=== PATIENT | male | born 1995 | race Asian ===

== ENCOUNTER 2023-02-21 12:12 | Emergency (ER) | payer SELFPAY ==
[2023-02-21] MEDS ORDERED: Lidocaine 1% PF 5 ML VIAL ONE (12:58)
== END 2023-02-21 14:20 | disposition home or self-care (01) ==
LOC: ERS 12:12
DX: J93.11 Primary spontaneous pneumothorax (principal)
CPT/HCPCS: 71045; 99284

== ENCOUNTER 2023-02-24 14:19 | Outpatient (CLI) | payer BC | END 2023-02-24 14:20 | disposition home or self-care (01) | LOC: RAD 14:19 | PROVIDERS: ATTEND Thoracic Surgery (Cardiothoracic Vascular Surgery) | DX: J93.9 Pneumothorax, unspecified (principal) | CPT/HCPCS: 71046 ==

== ENCOUNTER 2023-02-25 07:54 | Inpatient (IN) | payer BC, SELFPAY ==
[2023-02-24 15:39] VITALS: BMI 17.9
[2023-02-25] MEDS ORDERED: Dexamethasone 4 mg/ml Vial ONE (08:47)
[2023-02-25] MEDS ORDERED: Bupivacaine HCl 0.5%/Epinephrine 1:200,000/PF 30 ml Vial ONE (08:47)
[2023-02-25] MEDS ORDERED: PHENYLEPHRINE-NS 100 MCG/ML 10 ML SYRINGE ONE (09:00)
[2023-02-25] MEDS ORDERED: Succinylcholine 200 MG/10 ml SYRINGE FS ONE (09:00)
[2023-02-25] MEDS ORDERED: Dexamethasone 20 MG/5 ML VIAL ONE (09:00)
[2023-02-25] MEDS ORDERED: Rocuronium Bromide 10 MG/ML (10ML VIAL) ONE (09:00)
[2023-02-25] MEDS ORDERED: ePHEDrine Sulfate 50 MG/10 ML VIAL ONE (09:00)
[2023-02-25] MEDS ORDERED: Lidocaine 1% PF 5 ML VIAL ONE (09:00)
[2023-02-25] MEDS ORDERED: Ondansetron PF 4 MG/2 ML Vial ONE (09:00)
[2023-02-25] MEDS ORDERED: PROPOFOL 200 MG/20 ML VIAL ONE (09:00)
[2023-02-25] MEDS ORDERED: Sodium Chloride 0.9% 100 ML ONE (09:10)
[2023-02-25] MEDS ORDERED: CEFAZOLIN 2 GM VIAL ONE (09:10)
[2023-02-25] MEDS ORDERED: Fentanyl 250 MCG/5 ML VIAL ONE (09:11)
[2023-02-25] MEDS ORDERED: Midazolam HCl 2 mg/2 ml Vial ONE (09:11)
[2023-02-25] MEDS ORDERED: SUGAMMADEX SODIUM 200 MG/2 ML VIAL ONE (10:00)
[2023-02-25] MEDS ORDERED: Meperidine HCl/PF 25 MG/ML VIAL SLOW IVP PRN ×2 (10:32)
[2023-02-25] MEDS ORDERED: Promethazine HCl 25 MG/ML VIAL IM PRN (10:32)
[2023-02-25] MEDS ORDERED: Ondansetron HCl/PF 4 MG/2 ML Vial IVP PRN (10:32)
[2023-02-25] MEDS ORDERED: HYDROmorphone 2 MG/ML VIAL SLOW IVP PRN (10:32)
[2023-02-25] MEDS ORDERED: Meperidine HCl/PF 25 MG/ML VIAL ONE (10:37)
[2023-02-25] MEDS ORDERED: Fentanyl 100 MCG/2 ML VIAL SLOW IVP PRN ×2 (10:43)
[2023-02-25] MEDS ORDERED: Guaifenesin DM 100-10/5 ML UDCUP PO PRN (10:43)
[2023-02-25] MEDS ORDERED: traMADol HCl 50 MG TAB PO PRN (10:43)
[2023-02-25] MEDS ORDERED: fentaNYL 50 mcg/mL 1 mL Vial SLOW IVP PRN (10:54)
[2023-02-25] MEDS ORDERED: fentaNYL 50 mcg/mL 1 mL Vial ONE (10:55)
[2023-02-25] MEDS: Ketorolac Tromethamine 30 MG/ML VIAL IVP SCH ×2 (12:32→17:12)
[2023-02-25] MEDS ORDERED: Ketorolac Tromethamine 30 MG/ML VIAL ONE (12:32)
[2023-02-25] MEDS: Sodium Chloride 0.9% 1,000 ML IV SCH (15:45)
[2023-02-25] MEDS: CEFAZOLIN 2 GM in Sodium Chloride 0.9% 100 ML IVPB SCH (17:11)
[2023-02-26] MEDS: Ketorolac Tromethamine 30 MG/ML VIAL IVP SCH ×5 (00:25→23:45)
[2023-02-26] MEDS: CEFAZOLIN 2 GM in Sodium Chloride 0.9% 100 ML IVPB SCH ×2 (00:26→08:18)
[2023-02-26] MEDS: Sodium Chloride 0.9% 1,000 ML IV SCH (02:29)
[2023-02-27] MEDS: Ketorolac Tromethamine 30 MG/ML VIAL IVP SCH ×3 (06:01→16:45)
[2023-02-27] MEDS: Ondansetron ODT 4 MG TAB PO PRN (14:10)
[2023-02-28] MEDS: Ketorolac Tromethamine 30 MG/ML VIAL IVP SCH ×6 (00:28→23:40)
[2023-02-28] MEDS: Ondansetron ODT 4 MG TAB PO PRN ×2 (02:07→12:34)
[2023-03-01] MEDS: Ketorolac Tromethamine 30 MG/ML VIAL IVP SCH (05:24)
[2023-03-01 09:51] VITALS: BP 115/78; TEMP 97.7
== END 2023-03-01 10:40 | disposition home or self-care (01) | DRG 165 ==
LOC: SURG A 08:34 → SJJU 14:54
PROVIDERS: ADMIT Thoracic Surgery (Cardiothoracic Vascular Surgery); ATTEND Thoracic Surgery (Cardiothoracic Vascular Surgery)
PROC: 0BBG4ZZ Excision of Left Upper Lung Lobe, Percutaneous Endoscopic Approach (ICD-10-PCS; principal; 2023-02-25)
PROC: 0B5P4ZZ Destruction of Left Pleura, Percutaneous Endoscopic Approach (ICD-10-PCS; 2023-02-25)
DX: J93.9 Pneumothorax, unspecified (principal)
CPT/HCPCS: 71045; 71046; 88305; A4649; J1100; J1885; J2175; J2250; J2405; J2704; J3010; J3490; J7050; Q0162

== ENCOUNTER 2023-03-07 13:39 | Outpatient (CLI) | payer BC | END 2023-03-07 13:40 | disposition home or self-care (01) | LOC: RAD 13:39 | PROVIDERS: ATTEND Thoracic Surgery (Cardiothoracic Vascular Surgery) | DX: J95.811 Postprocedural pneumothorax (principal) | CPT/HCPCS: 71046 ==